=== PATIENT | female | born 1980 | race Caucasian/White ===

== ENCOUNTER 2021-05-02 01:28 | Emergency (ER) | payer SELFPAY ==
[~2021-05-02] VITALS: Ht 165.1 cm; Wt 85.5 kg
[2021-05-02 03:30] VITALS: BP 114/81
== END 2021-05-02 03:30 | disposition home or self-care (01) ==
LOC: ED 01:28 → EDSEX 02:40 → ED 02:40
DX: G56.22 Lesion of ulnar nerve, left upper limb (principal); F17.290 Nicotine dependence, other tobacco product, uncomplicated; Z88.5 Allergy status to narcotic agent
CPT/HCPCS: J1885

== ENCOUNTER → 2021-12-03 | Outpatient (CLI) | payer BC | LOC: LAB 14:29 | DX: U07.1 COVID-19 (principal) ==